=== PATIENT | female | born 1960 | race Caucasian/White ===

== ENCOUNTER 2018-09-16 20:36 | Emergency (ER) | payer MEDICARE, MEDICAID ==
[~2018-09-16] VITALS: Ht 160 cm; Wt 83.5 kg
[2018-09-17] MEDS ORDERED: ACETAMINOPHEN 500MG TABLET PO ONE
[2018-09-17 02:58] VITALS: BP 106/75
== END 2018-09-17 02:59 | disposition home or self-care (01) ==
LOC: ER 20:36
DX: S06.0X0A Concussion without loss of consciousness, initial encounter (principal); E11.9 Type 2 diabetes mellitus without complications; F32.9 Major depressive disorder, single episode, unspecified; W22.8XXA Striking against or struck by other objects, initial encounter; Y93.89 Activity, other specified; Y92.89 Other specified places as the place of occurrence of the external cause; Y99.8 Other external cause status
CPT/HCPCS: 82962; 99284